=== PATIENT | female | born 1970 | race Caucasian/White ===

== ENCOUNTER 2016-08-31 06:20 | Emergency (ER) | payer OTHER ==
[2016-08-31 06:16] LABS: ASCORBIC ACID (UR NOT ORDER) NEG (NEG); BILIRUBIN, URINE NEGATIVE (NEG); ER URINALYSIS TAT 0 Hrs 00 Mins; KETONE, URINE NEGATIVE (NEG); LEUKOCYTE ESTERASE(NOT OR NEG (NEG); NITRITE (URINE) NEG (NEG); WBC (NOT ORDERED) (RFLEX) 1 (0-5)
[~2016-08-31 06:20] MED LIST: ALLEGRA180 PO; BENTYL10 PO; CALTRAT600 PO; CENTRUM TAB1 TAB PO; CYMBALTA60 PO; DDAVP0.1 MG PO; ELDERTONIC PO; ESTRADIOL2 MG OR; FISH OIL PO; FISH-EPA1000 MG PO; FLECTOR1.3 % TOP; FLINTSTONE3 PO; GLUCPH PO; GYNODIOL2 MG PO; L20 PO; LAMICTAL200 MG PO; LATUDA80 MG PO; LORTAB10 PO; MAXALT-MLT5 MG SL; MAXALT10 MG PO; MULTIVIT/MIN PO; NEXIUM40 PO; NORCO1 TA2 PO; OPANA ER20 MG PO; OPANA ER40 MG PO; P125 PO; PAXIL40 MG PO; PROTONIX PO; RISP3 PO; RISP4 PO; SEPTRA DS1 TAB PO; SUCR PO; TEARS NATURA OPH; TOPAMAX100 PO; TREXIMET1 TAB PO; TRILEPTAL600 MG PO; VESICARE10 MG PO; VITAMIN B-121000 MC1 SL; VITAMIN D31000 UNIT PO; VOLT75 PO; VYBRID PO; WELLBUTRIN200 MG PO; XANAX1 MG PO; XANAX2 MG PO; XYZAL5 MG PO; Z300 PO; ZANAFLEX 4 MG TA4 MG PO
== END 2016-08-31 06:52 | disposition home or self-care (01) ==
LOC: ER 06:20
PROVIDERS: Nurse Practitioner Acute Care
DX: M54.5 Low back pain (principal); F31.9 Bipolar disorder, unspecified; F41.9 Anxiety disorder, unspecified; Z90.710 Acquired absence of both cervix and uterus; Z90.49 Acquired absence of other specified parts of digestive tract; K21.9 Gastro-esophageal reflux disease without esophagitis; Z88.6 Allergy status to analgesic agent; Z88.2 Allergy status to sulfonamides; Z88.8 Allergy status to other drugs, medicaments and biological substances; Z79.899 Other long term (current) drug therapy
CPT/HCPCS: 72100; 81001; 96372; 99284; A9270-GY; J1040